=== PATIENT | female | born 1995 ===

== ENCOUNTER 2017-01-05 19:49 | Emergency (ER) | payer SELFPAY ==
[2017-01-05] MEDS ORDERED: Sodium Chloride 0.9% 1,000 ML IV STA (19:59)
[2017-01-05 20:03] VITALS: RESP 18; TEMP 98.4; BMI 22.6
[2017-01-05 20:20] LABS: ADD MANUAL DIFF? NO
--- NOTE | 2017-01-05 20:25 | ED PDOC ---
Arrival/HPI - General Chief Complaint: Abdominal Pain Time Seen by Provider: 01/05/17 19:51 Historian: Patient - History of Present Illness Narrative History of Present Illness (Text): 01/05/17 20:21 21-year-old female presents today with a one-day history of lower abdominal pain . Patient complaining of nausea and no vomiting. States last bowel movement was 2 days ago. Denies fevers or chills. Complaining of low back pain. Denies dysuria or urinary frequency or urgency. Denies vaginal bleeding or vaginal discharge. Patient states her last menstrual period was on December 24. No medications have been taken for pain at home. Patient states she has pain along the right side of the abdomen radiating into the back and leg. Past Medical History - Provider Review Nursing Documentation Reviewed: Yes - Travel History Have you recently traveled outside [place] w/in the past 3 mons?: No - Infectious Disease Hx of Infectious Diseases: None - Tetanus Immunization Tetanus Immunization: Unknown - Past Medical History Past Medical History: No Previous - Cardiac Hx Cardiac Disorders: No - Pulmonary Hx Respiratory Disorders: No - Neurological Hx Neurological Disorder: No - HEENT Hx HEENT Disorder: Yes (b/l lasik eye sx) - Renal Hx Renal Disorder: No - Endocrine/Metabolic Hx Endocrine Disorders: No - Hematological/Oncological Hx Blood Disorders: No - Integumentary Hx Dermatological Disorder: No - Musculoskeletal/Rheumatological Hx Falls: No - Gastrointestinal Hx Gastrointestinal Disorders: Yes (gastritis) Hx Constipation: Yes - Genitourinary/Gynecological Hx Genitourinary Disorders: No - Psychiatric Hx Psychophysiologic Disorder: No Hx Substance Use: No - Past Surgical History Past Surgical History: No Previous - Anesthesia Hx Anesthesia: Yes Hx Anesthesia Reactions: No Hx Malignant Hyperthermia: No - Suicidal Assessment Feels Threatened In Home Enviroment: No Family/Social History - Physician Review Nursing Documentation Reviewed: Yes Family/Social History: Unknown Family HX Smoking Status: Never Smoked Hx Alcohol Use: No Hx Substance Use: No Hx Substance Use Treatment: No Allergies/Home Meds Allergies/Adverse Reactions: Allergies No Known Allergies Allergy (Verified 07/18/16 18:02) Review of Systems - Review of Systems Constitutional: absent: Fatigue, Fevers Respiratory: absent: SOB, Cough Cardiovascular: absent: Chest Pain, Palpitations Gastrointestinal: Abdominal Pain, Constipation (2 days), Nausea. absent: Diarrhea, Vomiting Genitourinary Female: absent: Dysuria, Frequency, Hematuria Musculoskeletal: Back Pain. absent: Neck Pain Skin: absent: Rash, Pruritis Neurological: absent: Headache, Dizziness Psychiatric: absent: Anxiety, Depression Physical Exam Vital Signs Reviewed: Yes Vital Signs Temp Pulse Resp BP Pulse Ox 01/05/17 22:09 76 18 111/73 100 01/05/17 19:56 98.4 F 79 18 113/76 100 Temperature: Afebrile Blood Pressure: Normal Pulse: Regular Respiratory Rate: Normal Appearance: Positive for: Well-Appearing, Non-Toxic, Comfortable Pain Distress: None Mental Status: Positive for: Alert and Oriented X 3 - Systems Exam Head: Present: Atraumatic Mouth: Present: Moist Mucous Membranes Neck: Present: Normal Range of Motion Respiratory/Chest: Present: Clear to Auscultation, Good Air Exchange. No: Respiratory Distress, Accessory Muscle Use Cardiovascular: Present: Regular Rate and Rhythm, Normal S1, S2. No: Murmurs Abdomen: Present: Tenderness (RLQ, periumbilica and RUQ tenderness), Normal Bowel Sounds. No: Distention, Peritoneal Signs, Rebound, Guarding Back: Present: Normal Inspection, Paraspinal Tenderness (+ minimal right lower tenderness). No: CVA Tenderness, Midline Tenderness Upper Extremity: Present: Normal ROM Lower Extremity: Present: Normal ROM Neurological: Present: GCS=15 Skin: Present: Warm, Dry, Normal Color. No: Rashes Psychiatric: Present: Alert, Oriented x 3 Medical Decision Making ED Course and Treatment: 01/05/17 20:27 Patient is nontoxic well appearing with stable vital signs presenting with rlq abdominal pain CBC wnl CMP wnl Lipase wnl Urinalysis wnl CAT scan: FINDINGS: Lower thorax: No acute findings. ABDOMEN: Liver: Unremarkable. No mass. Gallbladder and bile ducts: No calcified stones. No ductal dilation. Pancreas: No ductal dilation. No mass. Spleen: No splenomegaly. Adrenals: No mass. Kidneys and ureters: No mass. No hydronephrosis. Stomach and bowel: No definite mural thickening. No obstruction. Appendix: Normal caliber. No definite inflammation. PELVIS: Bladder: Unremarkable. Reproductive: 1.5 x 1.6 x 1.6 cm peripherally enhancing hypodensity with crenulated margins within LEFT ovary. ABDOMEN and PELVIS: Intraperitoneal space: No significant fluid collection. No free air. Bones/joints: No acute fracture. Soft tissues: Unremarkable. Vasculature: Retroaortic LEFT renal vein. No abdominal aortic aneurysm. Lymph nodes: No pathologically enlarged lymph nodes. IMPRESSION: 1. Involuting or ruptured LEFT ovarian follicle/cyst. 2. Incidental/non-acute findings are described above. Ultrasound: FINDINGS: Uterus/cervix: Uterus measures 7.9 x 3.9 x 4.8 cm in size. Retroverted, bicornuate uterus. No myometrial mass. Endometrium: Up to 1.4 cm in thickness. Right ovary: 2.3 x 1.1 x 3.0 cm in size. No mass. Small follicles. Normal flow. Left ovary: 3.3 x 3.3 x 1.8 cm in size. 1.6 x 1.2 x 1.7 cm thick walled hypoechoic lesion with crenulated margins. Small follicles. Normal flow. Free fluid: No significant free fluid. Bladder: Unremarkable as visualized. IMPRESSION: 1. Involuting or ruptured LEFT ovarian follicle/cyst. 2. Incidental/non-acute findings are described above. EXAM: US Pelvis, Transvaginal CLINICAL HISTORY: 21 years old, female; Pain; Pelvic pain; Additional info: Rlq pain TECHNIQUE: Real-time transvaginal pelvic ultrasound (complete) with image documentation. Transvaginal imaging was used for better evaluation of the endometrium and adnexa. COMPARISON: CT - ABD PELVIS IV CONTRAST ONLY 01/05/2017 9:17:43 PM FINDINGS: Uterus/cervix: Uterus measures 7.9 x 3.9 x 4.8 cm in size. Retroverted, bicornuate uterus. No myometrial mass. Endometrium: Up to 1.4 cm in thickness. Right ovary: 2.3 x 1.1 x 3.0 cm in size. No mass. Small follicles. Normal flow. Left ovary: 3.3 x 3.3 x 1.8 cm in size. 1.6 x 1.2 x 1.7 cm thick walled hypoechoic lesion with crenulated margins. Small follicles. Normal flow. Free fluid: No significant free fluid. Bladder: Empty bladder which cannot be evaluated with this probe. IMPRESSION: 1. Involuting or ruptured LEFT ovarian follicle/cyst. 2. Incidental/non-acute findings are described above. Patient reassessment: pt feeling better after medications; vitals stable. Discussed all results with patient in depth, advised follow-up with a primary care physician within the next 2 days. Advised follow-up with GI doctor within the next 2 days. Advised follow-up with her acute coordinator within the next 2 days. Advised immediate return if symptoms worsen or persist or if new concerning symptoms develop. Patient verbalizes understanding of discharge instructions and need for immediate followup. all aspects of this case were discussed the attending of record. Impression: Abdominal pain, ovarian cyst Motrin every 6 hours as needed for pain Colace twice daily. Follow up with her acute coordinator within the next 2 days Follow-up with the GI doctor within the next 2 days Follow up with primary care physician within the next 2 days Return immediately if symptoms worsen persist or if new symptoms develop: High fevers, increasing pain, vomiting, diarrhea or any other concerning symptoms develop - Lab Interpretations Lab Results: 01/05/17 20:07 01/05/17 20:07 Lab Results 01/05/17 20:07: WBC 8.7, RBC 4.24, Hgb 12.4, Hct 37.2, MCV 87.7, MCH 29.2, MCHC 33.3, RDW 13.2, Plt Count 336, MPV 11.4 H, Gran % 52.6, Lymph % (Auto) 34.2, [place] % (Auto) 12.4 H, Eos % (Auto) 0.6 L, Baso % (Auto) 0.2, Gran # 4.59, Lymph # 3.0, [place] # 1.1 H, Eos # 0.1, Baso # 0.02, Sodium 136, Potassium 3.8, Chloride 102, Carbon Dioxide 25, Anion Gap 13, BUN 4 L, Creatinine 0.6, Est GFR ( Amer) > 60, Est GFR (Non-Af Amer) > 60, Random Glucose 91, Calcium 9.7 , Total Bilirubin 0.4, AST 24, ALT 17, Alkaline Phosphatase 69, Total Protein 8.6 H, Albumin 4.5, Globulin 4.1, Albumin/Globulin Ratio 1.1, Lipase 66, Urine Color Yellow, Urine Appearance Clear, Urine pH 7.5, Ur Specific [place] 1.015, Urine Protein Trace H, Urine Glucose (UA) Negative, Urine Ketones Negative, Urine Blood Negative, Urine Nitrate Negative, Urine Bilirubin Negative, Urine Urobilinogen 0.2, Ur Leukocyte Esterase Negative, Urine RBC 0 - 2, Urine WBC 0 - 2, Ur Epithelial Cells 4 - 5, Urine Bacteria Few, Urine HCG, Qual Negative - RAD Interpretation Radiology Orders: 01/05/17 20:48 ABD & PELVIS IV CONTRAST ONLY [CT] Stat 01/05/17 21:56 TRANSVAGINAL [US] Stat - Medication Orders Current Medication Orders: Discontinued Medications Sodium Chloride (Sodium Chloride 0.9%) 1,000 mls @ 999 mls/hr IV .Q1H1M STA Stop: 01/05/17 20:59 Last Admin: 01/05/17 20:19 Dose: 999 MLS/HR eMAR Start Stop Document 01/05/17 20:19 SB (Rec: 01/05/17 20:19 SB [id number]) Intravenous Solution Start Date 01/05/17 Start Time 20:19 End Date 01/05/17 Iohexol (Omnipaque 350 100 Ml) Confirm Administered Dose 350 mg .ROUTE .STK-MED ONE Stop: 01/05/17 20:56 Ketorolac Tromethamine (Toradol) 30 mg IVP STAT STA Stop: 01/05/17 20:49 Last Admin: 01/05/17 22:08 Dose: 30 MG IVP Administration Document 01/05/17 22:08 SB (Rec: 01/05/17 22:08 SB [id number]) Charges for Administration # of IVP Administrations 1 Disposition/Present on Arrival - Present on Arrival Any Indicators Present on Arrival: No History of DVT/PE: No History of Uncontrolled Diabetes: No Urinary Catheter: No History of Decub. Ulcer: No History Surgical Site Infection Following: None - Disposition Have Diagnosis and Disposition been Completed?: Yes Diagnosis: Abdominal pain, Ovarian cyst Disposition: HOME/ ROUTINE Disposition Time: 23:01 Patient Plan: Discharge Condition: FAIR Discharge Instructions (ExitCare): Acute Abdominal Pain (ED), Ovarian Cyst (ED) Additional Instructions: Motrin every 6 hours as needed for pain Colace twice daily. Follow up with her acute coordinator within the next 2 days Follow-up with the GI doctor within the next 2 days Follow up with primary care physician within the next 2 days Return immediately if symptoms worsen persist or if new symptoms develop: High fevers, increasing pain, vomiting, diarrhea or any other concerning symptoms develop Prescriptions: Docusate [Colace] 100 mg PO BID #20 cap Ibuprofen [Motrin] 600 mg PO Q6H PRN #20 tab PRN Reason: pain/fever reduction Referrals: Nalini Beckman MD [Staff Provider] - Follow up with primary Moses Perez DO [Staff Provider] - Follow up with primary Guerda Stokes MD [Staff Provider] - Follow up with primary Forms: WORK NOTE
[2017-01-05 20:27] LABS: BASO # 0.02 K/mm3 (0.0-2.0); BASO % 0.2 % (0.0-3.0); EOS # 0.1 (0.0-0.7); EOS % 0.6 % (1.5-5.0); GRAN # 4.59 (1.4-6.5); GRAN % 52.6 % (50.0-68.0); HEMATOCRIT 37.2 % (36.0-48.0); LYMPH % 34.2 % (22.0-35.0); MEAN CELL VOLUME 87.7 fL (80.0-105.0); MEAN CORPUSCULAR HEMOGLOBIN 29.2 pg (25.0-35.0); MEAN CORPUSCULAR HGB CONC 33.3 g/dl (31.0-37.0); MEAN PLATELET VOLUME 11.4 fl (7.0-11.0); MONO # 1.1 (0.1-0.6); MONO % 12.4 % (1.0-6.0); PLATELET COUNT 336 10^3/uL (120.0-450.0); RED CELL DISTRIBUTION WIDTH 13.2 % (11.5-14.5); WHITE BLOOD COUNT 8.7 10^3/ul (4.5-11.0)
[2017-01-05 20:35] LABS: PH,URINE 7.5 (4.7-8.0); URINE BILIRUBIN NEGATIVE (NEGATIVE); URINE BLOOD NEGATIVE (NEGATIVE); URINE GLUCOSE (UA) NEGATIVE (NEGATIVE); URINE KETONE NEGATIVE (NEGATIVE); URINE LEUKOCYTE ESTERASE NEGATIVE Leu/uL (NEGATIVE); URINE PROTEIN TRACE mg/dL (<30 mg/dL); URINE UROBILINOGEN 0.2 E.U./dL (<1 E.U./dL)
[2017-01-05 20:36] LABS: URINE APPEARANCE CLEAR (CLEAR); URINE COLOR YELLOW (YELLOW)
[2017-01-05 20:37] LABS: ALB/GLOB RATIO 1.1 (1.1-1.8); ALKALINE PHOSPHATASE 69 U/L (38-133); ALT/SGPT 17 U/L (7-56); AST/SGOT 24 U/L (15-39); BILIRUBIN,TOTAL 0.4 mg/dL (0.2-1.3); BLOOD UREA NITROGEN 4 mg/dL (7-21); CALCIUM 9.7 mg/dL (8.4-10.5); CARBON DIOXIDE 25 mmol/L (21-33); CHLORIDE 102 mmol/L (98-107); GFR AFRICAN-AMERICAN > 60; GLUCOSE,RANDOM 91 mg/dL (70-110); LIPASE 66 U/L (23-300); POTASSIUM 3.8 mmol/L (3.6-5.0); SODIUM 136 mmol/L (132-148); TOTAL PROTEIN 8.6 g/dL (5.8-8.3)
[2017-01-05 20:50] LABS: URINE BACTERIA FEW (NEG); URINE RBC 0 - 2 /hpf (0-2); URINE WBC 0 - 2 /hpf (0-6)
[2017-01-05] MEDS ORDERED: Iohexol 350 MG/100 ML VIAL ONE (20:55)
--- NOTE | 2017-01-05 21:49 | CT ---
EXAM: CT Abdomen and Pelvis With Intravenous Contrast CLINICAL HISTORY: 21 years old, female; Pain; Abdominal pain; Localized; Right lower quadrant (rlq); Additional info: Abd pain rlq TECHNIQUE: Axial computed tomography images of the abdomen and pelvis with intravenous contrast. This CT exam was performed using one or more of the following dose reduction techniques: automated exposure control, adjustment of the mA and/or kV according to patient size, and/or use of iterative reconstruction technique. Coronal and sagittal reformatted images were created and reviewed. CONTRAST: 95 mL of OMNI 350 administered intravenously. COMPARISON: CT - ABD PELVIS PO IV CONTRAST 04/27/2016 10:20:16 PM FINDINGS: Lower thorax: No acute findings. ABDOMEN: Liver: Unremarkable. No mass. Gallbladder and bile ducts: No calcified stones. No ductal dilation. Pancreas: No ductal dilation. No mass. Spleen: No splenomegaly. Adrenals: No mass. Kidneys and ureters: No mass. No hydronephrosis. Stomach and bowel: No definite mural thickening. No obstruction. Appendix: Normal caliber. No definite inflammation. PELVIS: Bladder: Unremarkable. Reproductive: 1.5 x 1.6 x 1.6 cm peripherally enhancing hypodensity with crenulated margins within LEFT ovary. ABDOMEN and PELVIS: Intraperitoneal space: No significant fluid collection. No free air. Bones/joints: No acute fracture. Soft tissues: Unremarkable. Vasculature: Retroaortic LEFT renal vein. No abdominal aortic aneurysm. Lymph nodes: No pathologically enlarged lymph nodes. IMPRESSION: 1. Involuting or ruptured LEFT ovarian follicle/cyst. 2. Incidental/non-acute findings are described above.
[2017-01-05 22:10] VITALS: PULSE 76
--- NOTE | 2017-01-05 22:49 | US ---
EXAM: US Pelvis Complete, Transabdominal CLINICAL HISTORY: 21 years old, female; Pain; Pelvic pain; Additional info: Rlq pain TECHNIQUE: Real-time transabdominal pelvic ultrasound (complete) with image documentation. COMPARISON: CT - ABD PELVIS IV CONTRAST ONLY 01/05/2017 9:17:43 PM FINDINGS: Uterus/cervix: Uterus measures 7.9 x 3.9 x 4.8 cm in size. Retroverted, bicornuate uterus. No myometrial mass. Endometrium: Up to 1.4 cm in thickness. Right ovary: 2.3 x 1.1 x 3.0 cm in size. No mass. Small follicles. Normal flow. Left ovary: 3.3 x 3.3 x 1.8 cm in size. 1.6 x 1.2 x 1.7 cm thick walled hypoechoic lesion with crenulated margins. Small follicles. Normal flow. Free fluid: No significant free fluid. Bladder: Unremarkable as visualized. IMPRESSION: 1. Involuting or ruptured LEFT ovarian follicle/cyst. 2. Incidental/non-acute findings are described above. EXAM: US Pelvis, Transvaginal CLINICAL HISTORY: 21 years old, female; Pain; Pelvic pain; Additional info: Rlq pain TECHNIQUE: Real-time transvaginal pelvic ultrasound (complete) with image documentation. Transvaginal imaging was used for better evaluation of the endometrium and adnexa. COMPARISON: CT - ABD PELVIS IV CONTRAST ONLY 01/05/2017 9:17:43 PM FINDINGS: Uterus/cervix: Uterus measures 7.9 x 3.9 x 4.8 cm in size. Retroverted, bicornuate uterus. No myometrial mass. Endometrium: Up to 1.4 cm in thickness. Right ovary: 2.3 x 1.1 x 3.0 cm in size. No mass. Small follicles. Normal flow. Left ovary: 3.3 x 3.3 x 1.8 cm in size. 1.6 x 1.2 x 1.7 cm thick walled hypoechoic lesion with crenulated margins. Small follicles. Normal flow. Free fluid: No significant free fluid. Bladder: Empty bladder which cannot be evaluated with this probe.
[2017-01-05 23:11] VITALS: BP 103/78; O2SAT 95
== END 2017-01-05 23:14 | disposition home or self-care (01) ==
LOC: ED 19:49
DX: R10.9 Unspecified abdominal pain (principal); N83.202 Unspecified ovarian cyst, left side
CPT/HCPCS: 74177; 76830; 80053; 81001; 83690; 84703; 85025; 96374; 99283; J1885; J7040; Q9967

== ENCOUNTER 2017-03-08 19:51 | Emergency (ER) | payer OTHER ==
[2017-03-08 19:51] VITALS: BMI 22.6
[2017-03-08] MEDS ORDERED: Sodium Chloride 0.9% 1,000 ML IV STA (20:33)
--- NOTE | 2017-03-08 20:40 | ED PDOC ---
Arrival/HPI - General Chief Complaint: Dizziness/Lightheaded Time Seen by Provider: 03/08/17 20:03 Historian: Patient - History of Present Illness Narrative History of Present Illness (Text): 03/08/17 20:31 A 22 year old female, who denies any past medical history, presents to the emergency department complaining of dizziness since this morning. Patient states her symptom is mildly exacerbated with movement. Patient reports 3 episodes of non-bilious non-bloody vomiting. She notes she has experienced previous episodes of similar dizziness before but never had vomiting associated with it. Patient denies any fever, chills, diarrhea, abdominal pain, urinary symptoms, chest pain, shortness of breath, headache, visual changes, ear pain or any other complaints. PMD: None Time/Duration: Other (This morning) Symptom Course: Unchanged Quality: Other Context: Home Past Medical History - Provider Review Nursing Documentation Reviewed: Yes - Infectious Disease Hx of Infectious Diseases: None - Tetanus Immunization Tetanus Immunization: Unknown - Past Medical History Past Medical History: No Previous - Cardiac Hx Cardiac Disorders: No - Pulmonary Hx Respiratory Disorders: No - Neurological Hx Neurological Disorder: No - HEENT Hx HEENT Disorder: Yes (b/l lasik eye sx) - Renal Hx Renal Disorder: No - Endocrine/Metabolic Hx Endocrine Disorders: No - Hematological/Oncological Hx Blood Disorders: No - Integumentary Hx Dermatological Disorder: No - Musculoskeletal/Rheumatological Hx Falls: No - Gastrointestinal Hx Gastrointestinal Disorders: Yes (gastritis) Hx Constipation: Yes - Genitourinary/Gynecological Hx Genitourinary Disorders: No - Psychiatric Hx Psychophysiologic Disorder: No Hx Substance Use: No - Past Surgical History Past Surgical History: No Previous - Anesthesia Hx Anesthesia: Yes - Suicidal Assessment Feels Threatened In Home Enviroment: No Family/Social History - Physician Review Nursing Documentation Reviewed: Yes Family/Social History: No Known Family HX Smoking Status: Never Smoked Hx Alcohol Use: No Hx Substance Use: No Hx Substance Use Treatment: No Allergies/Home Meds Allergies/Adverse Reactions: Allergies No Known Allergies Allergy (Verified 07/18/16 18:02) Review of Systems - Physician Review All systems were reviewed & negative as marked: Yes - Review of Systems Constitutional: absent: Fevers, Night Sweats Eyes: absent: Vision Changes ENT: absent: TMJ Pain Respiratory: absent: SOB Cardiovascular: Palpitations. absent: Chest Pain Gastrointestinal: Vomiting. absent: Abdominal Pain, Diarrhea Genitourinary Female: absent: Dysuria, Frequency, Hematuria, Urine Output Changes Neurological: Dizziness. absent: Headache, Focal Weakness Physical Exam Vital Signs Reviewed: Yes Vital Signs Temp Pulse Resp BP Pulse Ox 03/08/17 22:14 98.7 F 76 18 109/52 L 100 03/08/17 19:58 99.0 F 82 16 115/80 99 Temperature: Afebrile Blood Pressure: Normal Pulse: Regular Respiratory Rate: Normal Appearance: Positive for: Well-Appearing, Non-Toxic, Comfortable Pain Distress: None Mental Status: Positive for: Alert and Oriented X 3 Finger Stick Blood Glucose: 120 - Systems Exam Head: Present: Atraumatic, Normocephalic Pupils: Present: PERRL Extroacular Muscles: Present: EOMI Conjunctiva: Present: Normal Ears: Present: Normal, NORMAL TM, Normal Canal. No: Erythema Mouth: Present: Moist Mucous Membranes Pharnyx: Present: Normal. No: ERYTHEMA, EXUDATE Neck: Present: Normal Range of Motion Respiratory/Chest: Present: Clear to Auscultation, Good Air Exchange. No: Respiratory Distress, Accessory Muscle Use Cardiovascular: Present: Regular Rate and Rhythm, Normal S1, S2. No: Murmurs Abdomen: Present: Normal Bowel Sounds. No: Tenderness, Distention, Peritoneal Signs Back: Present: Normal Inspection Upper Extremity: Present: Normal Inspection. No: Cyanosis, Edema Lower Extremity: Present: Normal Inspection. No: Edema Neurological: Present: GCS=15, CN II-XII Intact, Speech Normal, Motor Func Grossly Intact, Normal Cerebellar Funct Skin: Present: Warm, Dry, Normal Color. No: Rashes Psychiatric: Present: Alert, Oriented x 3, Normal Insight, Normal Concentration Medical Decision Making ED Course and Treatment: 03/08/17 20:31 Impression: A 22 year old female with dizziness. Patient notes non-bilious non bloody vomiting. Physical exam unremarkable. Differential Diagnosis included but are not limited to: vertigo vs less likely central vertigo. Plan: -- Head CT -- EKG -- Labs -- Urinalysis -- Pepcid, Antivert, Zofran and IV fluids -- Reassess and disposition Progress Notes: Report Date: 03/08/2017 21:44 EXAM: CT Head Without Intravenous Contrast Dictated and Authenticated by: Asia Marie MD IMPRESSION: No acute intracranial abnormality 03/08/17 22:30 Patient with noted history of dizziness with spinning sensation and normal exam. Labs, brain CT, and EKG are all normal. Patient also mentioned some palpitations but EKG is normal and had a normal echo done 1.5 years ago. Patient given meds, initially with minimal relief but after reglan felt full resolution of symptoms - will treat for vertigo and d/c to f/u in the medical clinic. - Lab Interpretations Lab Results: 03/08/17 20:40 03/08/17 20:40 Lab Results 03/08/17 20:40: Sodium 137, Potassium 3.6, Chloride 104, Carbon Dioxide 23, Anion Gap 14, BUN 5 L, Creatinine 0.6, Est GFR ( Amer) > 60, Est GFR (Non -Af Amer) > 60, Random Glucose 94, Calcium 9.3, Total Bilirubin 0.4, AST 30, ALT 25, Alkaline Phosphatase 61, Total Protein 8.2, Albumin 4.4, Globulin 3.8, Albumin/Globulin Ratio 1.2, Lipase 69 03/08/17 20:40: Urine Color Yellow, Urine Appearance Clear, Urine pH 7.0, Ur Specific [place] 1.020, Urine Protein Negative, Urine Glucose (UA) Negative, Urine Ketones Negative, Urine Blood Negative, Urine Nitrate Negative, Urine Bilirubin Negative, Urine Urobilinogen 0.2, Ur Leukocyte Esterase Negative 03/08/17 20:40: WBC 10.0, RBC 4.17, Hgb 12.3, Hct 36.9, MCV 88.5, MCH 29.5, MCHC 33.3, RDW 13.0, Plt Count 282, MPV 11.6 H, Gran % 62.0, Lymph % (Auto) 24.1 , [place] % (Auto) 13.0 H, Eos % (Auto) 0.6 L, Baso % (Auto) 0.3, Gran # 6.18, Lymph # 2.4, [place] # 1.3 H, Eos # 0.1, Baso # 0.03 I have reviewed the lab results: Yes - RAD Interpretation Radiology Orders: 03/08/17 20:36 Brain [HEAD W/O CONTRAST] [CT] Stat - EKG Interpretation EKG Interpretation (Text): 03/08/17 22:14 NSR @ 76; normal intervals; normal axis; no ST/T changes (there is pseudonormalization of inferior T wave inversions seen on 07/28/15). Interpreted by ED Physician: Yes Type: 12 lead EKG Comparison: Different from prev. EKG (07/28/15) - Medication Orders Current Medication Orders: Discontinued Medications Famotidine (Pepcid) 20 mg IVP STAT STA Stop: 03/08/17 20:34 Last Admin: 03/08/17 20:56 Dose: 20 mg Sodium Chloride (Sodium Chloride 0.9%) 1,000 mls @ 1,000 mls/hr IV .Q1H STA Stop: 03/08/17 21:32 Last Admin: 03/08/17 20:57 Dose: 1,000 mls/hr Meclizine HCl (Antivert) 12.5 mg PO STAT STA Stop: 03/08/17 20:37 Last Admin: 03/08/17 20:56 Dose: 12.5 mg Metoclopramide HCl (Reglan) 10 mg IVP STAT STA Stop: 03/08/17 21:48 Last Admin: 03/08/17 22:11 Dose: 10 mg Ondansetron HCl (Zofran Inj) 4 mg IVP STAT STA Stop: 03/08/17 20:34 Last Admin: 03/08/17 20:57 Dose: 4 mg - Scribe Statement The provider has reviewed the documentation as recorded by the Ruthie Nova Provider Scribe Attestation: All medical record entries made by the Luisibdonald were at my direction and personally dictated by me. I have reviewed the chart and agree that the record accurately reflects my personal performance of the history, physical exam, medical decision making, and the department course for this patient. I have also personally directed, reviewed, and agree with the discharge instructions and disposition. Disposition/Present on Arrival - Present on Arrival Any Indicators Present on Arrival: No History of DVT/PE: No History of Uncontrolled Diabetes: No Urinary Catheter: No History of Decub. Ulcer: No History Surgical Site Infection Following: None - Disposition Have Diagnosis and Disposition been Completed?: Yes Diagnosis: Vertigo Disposition: HOME/ ROUTINE Disposition Time: 22:25 Patient Plan: Discharge Patient Problems: Current Active Problems Problem Status Onset Vertigo Acute Condition: GOOD Discharge Instructions (ExitCare): Vertigo (ED), Benign Paroxysmal Positional Vertigo (ED) Additional Instructions: Drink plenty of fluids. Take the medications as prescribed. Follow up with the medical clinic. Return to the emergency department if any new concerning symptoms. Prescriptions: Meclizine [Antivert] 1 tab PO TID PRN #15 tab PRN Reason: Dizziness Ondansetron ODT [Zofran ODT] 1 tab PO Q8H PRN #10 odt PRN Reason: Nausea/Vomiting Referrals: [facility] at [facility] [place] [Outside] - Follow up with primary
[2017-03-08 20:49] LABS: ADD MANUAL DIFF? NO
[2017-03-08 20:53] LABS: BASO # 0.03 K/mm3 (0.0-2.0); BASO % 0.3 % (0.0-3.0); EOS # 0.1 (0.0-0.7); EOS % 0.6 % (1.5-5.0); GRAN # 6.18 (1.4-6.5); HEMATOCRIT 36.9 % (36.0-48.0); LYMPH # 2.4 (1.2-3.4); LYMPH % 24.1 % (22.0-35.0); MEAN CELL VOLUME 88.5 fL (80.0-105.0); MEAN CORPUSCULAR HEMOGLOBIN 29.5 pg (25.0-35.0); MEAN CORPUSCULAR HGB CONC 33.3 g/dl (31.0-37.0); MEAN PLATELET VOLUME 11.6 fl (7.0-11.0); MONO # 1.3 (0.1-0.6); PLATELET COUNT 282 10^3/uL (120.0-450.0)
[2017-03-08 20:54] LABS: URINE BILIRUBIN NEGATIVE (NEGATIVE); URINE BLOOD NEGATIVE (NEGATIVE); URINE GLUCOSE (UA) NEGATIVE (NEGATIVE); URINE KETONE NEGATIVE (NEGATIVE); URINE LEUKOCYTE ESTERASE NEGATIVE Leu/uL (NEGATIVE); URINE PROTEIN NEGATIVE mg/dL (<30 mg/dL); URINE UROBILINOGEN 0.2 E.U./dL (<1 E.U./dL)
[2017-03-08 20:55] LABS: URINE APPEARANCE CLEAR (CLEAR); URINE COLOR YELLOW (YELLOW)
[2017-03-08 21:04] LABS: ALB/GLOB RATIO 1.2 (1.1-1.8); ALKALINE PHOSPHATASE 61 U/L (38-133); ALT/SGPT 25 U/L (7-56); AST/SGOT 30 U/L (15-39); BILIRUBIN,TOTAL 0.4 mg/dL (0.2-1.3); BLOOD UREA NITROGEN 5 mg/dL (7-21); CALCIUM 9.3 mg/dL (8.4-10.5); CARBON DIOXIDE 23 mmol/L (21-33); CHLORIDE 104 mmol/L (98-107); GFR AFRICAN-AMERICAN > 60; GLUCOSE,RANDOM 94 mg/dL (70-110); LIPASE 69 U/L (23-300); POTASSIUM 3.6 mmol/L (3.6-5.0); SODIUM 137 mmol/L (132-148); TOTAL PROTEIN 8.2 g/dL (5.8-8.3)
--- NOTE | 2017-03-08 21:44 | CT ---
EXAM: CT Head Without Intravenous Contrast CLINICAL HISTORY: 22 years old, female; Signs and symptoms; Dizziness; Additional info: Dizzy TECHNIQUE: Axial computed tomography images of the head/brain without intravenous contrast. This CT exam was performed using one or more of the following dose reduction techniques: automated exposure control, adjustment of the mA and/or kV according to patient size, and/or use of iterative reconstruction technique. EXAM DATE/TIME: 03/08/2017 8:36 PM COMPARISON: CT - HEAD W/O CONTRAST 07/28/2015 12:37:50 PM FINDINGS: Brain: Ventricles are normal in size and configuration. There is no midline shift. There are no intra-axial or extra-axial mass lesions or areas of hemorrhage. There are no abnormal fluid collections. Crowell-white differentiation is maintained. Ventricles: See above. Bones: Cranial vault is intact. Soft tissues: unremarkable Sinuses: There is no acute sinusitis. Ears and mastoids: Middle ears and mastoids are unremarkable. There is streak artifact from earrings Orbits: Orbital contents are unremarkable. IMPRESSION: No acute intracranial abnormality
[2017-03-08 22:15] VITALS: TEMP 98.7; O2SAT 100
[2017-03-08 22:33] VITALS: BP 124/78; PULSE 91; RESP 16
--- NOTE | 2017-03-09 16:22 | CARD ---
APPROVED REPORT EKG Measurement Heart [id number] <Conclusion> Normal sinus rhythm Normal ECG
== END 2017-03-08 22:32 | disposition home or self-care (01) ==
LOC: ED 19:51
DX: R42 Dizziness and giddiness (principal)
CPT/HCPCS: 70450; 80053; 81003; 83690; 85025; 93005; 96374; 96375; 99285; J2405; J2765; J7040

== ENCOUNTER 2017-05-30 16:32 | Emergency (ER) | payer OTHER ==
[2017-05-30 16:33] VITALS: BMI 22.6
[2017-05-30 16:41] VITALS: RESP 18; TEMP 98.7
--- NOTE | 2017-05-30 16:44 | ED PDOC ---
Arrival/HPI - General Historian: Patient - History of Present Illness Time/Duration: < week Symptom Onset: Gradual Symptom Course: Worsening Severity Level: Moderate - General Chief Complaint: Back Pain Time Seen by Provider: 05/30/17 16:42 - History of Present Illness Narrative History of Present Illness (Text): 05/30/17 16:55 22yo F with no significant PMHx here for evaluation of left flank pain. Patient reports left flank pain for the past 3 days. States that she has associated urinary urgency, urinary frequency and dysuria over the same time period. She denies any fevers, does report chills. No N/V/D. Does report chronic constipation. Denies any CP/SOB. No Headaches. She is sexually active with single partner. Denies possibility of . Denies any vaginal discharge. 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 Denies Tobacco, Rare ETOH, Denies any illicit drugs NKDA (UmbertoArnold) Past Medical History - Provider Review Nursing Documentation Reviewed: Yes - Infectious Disease Hx of Infectious Diseases: None - Tetanus Immunization Tetanus Immunization: Unknown - Past Medical History Past Medical History: No Previous - Cardiac Hx Cardiac Disorders: No - Pulmonary Hx Respiratory Disorders: No - Neurological Hx Neurological Disorder: No - HEENT Hx HEENT Disorder: Yes (b/l lasik eye sx) - Renal Hx Renal Disorder: No - Endocrine/Metabolic Hx Endocrine Disorders: No - Hematological/Oncological Hx Blood Disorders: No - Integumentary Hx Dermatological Disorder: No - Musculoskeletal/Rheumatological Hx Falls: No - Gastrointestinal Hx Gastrointestinal Disorders: Yes (gastritis) Hx Constipation: Yes - Genitourinary/Gynecological Hx Genitourinary Disorders: No - Psychiatric Hx Psychophysiologic Disorder: No Hx Substance Use: No - Past Surgical History Past Surgical History: No Previous - Anesthesia Hx Anesthesia: Yes Hx Anesthesia Reactions: No - Suicidal Assessment Feels Threatened In Home Enviroment: No Family/Social History - Physician Review Nursing Documentation Reviewed: Yes Family/Social History: Unknown Family HX Smoking Status: Never Smoked Hx Alcohol Use: No Hx Substance Use: No Hx Substance Use Treatment: No Allergies/Home Meds Allergies/Adverse Reactions: Allergies No Known Allergies Allergy (Verified 05/30/17 16:38) Review of Systems - Physician Review All systems were reviewed & negative as marked: Yes - Review of Systems Constitutional: Normal. absent: Fevers Eyes: Normal ENT: Normal Respiratory: Normal Cardiovascular: Normal Gastrointestinal: Abdominal Pain, Constipation. absent: Diarrhea, Nausea, Vomiting Genitourinary Female: Dysuria, Frequency. absent: Hematuria, Vaginal Discharge Physical Exam Vital Signs Reviewed: Yes Temperature: Afebrile Blood Pressure: Normal Pulse: Regular Respiratory Rate: Normal Appearance: Positive for: Well-Appearing, Non-Toxic, Comfortable Pain Distress: Moderate Mental Status: Positive for: Alert and Oriented X 3 - Systems Exam Head: Present: Atraumatic, Normocephalic Extroacular Muscles: Present: EOMI Mouth: Present: Moist Mucous Membranes Respiratory/Chest: Present: Clear to Auscultation, Good Air Exchange. No: Respiratory Distress, Accessory Muscle Use, Wheezes, Decreased Breath Sounds, Rales, Rhonchi Cardiovascular: Present: Regular Rate and Rhythm, Normal S1, S2. No: Murmurs Abdomen: Present: Tenderness (LLQ abd pain. ). No: Distention, Peritoneal Signs , Rebound, Guarding Back: Present: CVA Tenderness (left sided CVA tenderness) Upper Extremity: Present: Normal Inspection. No: Edema Lower Extremity: Present: Normal Inspection. No: Edema, CALF TENDERNESS Neurological: Present: GCS=15 Skin: Present: Warm, Dry, Normal Color Psychiatric: Present: Alert, Oriented x 3 Medical Decision Making ED Course and Treatment: 05/30/17 17:39 22yo F with Dysuria, Left flank pain - UA - Positive for UTI. With evidence of Urinary blood - CT Abd/Pelvis ordered - Toradol - CBC/CMP - Reassess and dispo 05/30/17 20:[address] Abd/Pelvis from vrad Labs within normal limits 05/30/17 20:37 CT Abd - No ureteral stones, no kidney stones. No hydronephrosis. Mild constipation. Will prescribe patient Macrobid. First dose here in ED. - Discussed findings with patient. Patient to follow up with [facility] clinic. Patient understands and agrees with plan. (Arnold Shipman) A 22 year old female with left flank pain and dysuria. In agreement with resident note, which includes further HPI details. Patient was seen and evaluated with resident, came up with plan and treatment together. Report Date : 05/30/2017 20:39:00 EXAM: CT Abdomen and Pelvis Without Intravenous Contrast Dictated By: Asia Marie MD IMPRESSION: No renal or ureteral stones or hydronephrosis; no acute solid visceral abnormality; possible constipation (Jeannie Keating) - Lab Interpretations Lab Results: 05/30/17 17:20 05/30/17 17:20 Lab Results 05/30/17 17:20: Sodium 139, Potassium 4.1, Chloride 104, Carbon Dioxide 25, Anion Gap 14, BUN 7, Creatinine 0.6, Est GFR ( Amer) > 60, Est GFR (Non- Af Amer) > 60, Random Glucose 89, Calcium 9.6, Total Bilirubin 0.5, AST 23, ALT 25, Alkaline Phosphatase 82, Total Protein 7.9, Albumin 4.3, Globulin 3.5, Albumin/Globulin Ratio 1.2 05/30/17 17:20: WBC 10.0, RBC 4.18, Hgb 12.1, Hct 37.2, MCV 89.0, MCH 28.9, MCHC 32.5, RDW 13.1, Plt Count 313, MPV 11.4 H, Gran % 66.8, Lymph % (Auto) 20.0 L, [place] % (Auto) 12.5 H, Eos % (Auto) 0.5 L, Baso % (Auto) 0.2, Gran # 6.70 H, Lymph # 2.0, [place] # 1.3 H, Eos # 0.1, Baso # 0.02 05/30/17 17:00: Urine Color Yellow, Urine Appearance Sl cloudy, Urine pH 7.0, Ur Specific [place] 1.020, Urine Protein 30 H, Urine Glucose (UA) Negative, Urine Ketones Negative, Urine Blood Large H, Urine Nitrate Negative, Urine Bilirubin Negative, Urine Urobilinogen 1.0 H, Ur Leukocyte Esterase Large H, Urine RBC 25 - 30, Urine WBC Tntc, Ur Epithelial Cells 6 - 8, Urine Bacteria Many, Urine HCG, Qual Negative - RAD Interpretation Radiology Orders: 05/30/17 17:27 ABDOMEN & PELVIS [ABD & PELVIS W/O PO OR IV CONT] [CT] Stat - Medication Orders Current Medication Orders: Nitrofurantoin Macrocrystals (Macrobid) 100 mg PO STAT STA Stop: 08/22/17 20:41 Discontinued Medications Ketorolac Tromethamine (Toradol) 30 mg IVP STAT STA Stop: 05/30/17 17:09 Last Admin: 05/30/17 17:21 Dose: 30 mg - PA / CUSTODIAL AIDE / Resident Statement / has reviewed & agrees with the documentation as recorded. / has examined the patient and agrees with the treatment plan. Disposition/Present on Arrival - Present on Arrival Any Indicators Present on Arrival: No History of DVT/PE: No History of Uncontrolled Diabetes: No Urinary Catheter: No History of Decub. Ulcer: No History Surgical Site Infection Following: None - Disposition Have Diagnosis and Disposition been Completed?: Yes Disposition Time: 20:43 Patient Plan: Discharge - Disposition Diagnosis: Urinary tract infection Disposition: HOME/ ROUTINE Patient Problems: Current Active Problems Problem Status Onset Urinary tract infection Acute Condition: GOOD Discharge Instructions (ExitCare): Urinary Tract Infection in Women (ED) Additional Instructions: 1. Follow up with your Primary Care Physician within 1 week. Follow up with our clinic if unable to find a PCP. Call for appointment 2. Take antibiotics as prescribed to completion 3. Use OTC Ibuprofen as directed as needed for pain 4. Return to the ER with any concerning symptoms Prescriptions: Nitrofurantoin Macrocrystal [Nitrofurantoin] 100 mg PO BID #10 capsule Referrals: Matti Neri, [Primary Care Provider] - Follow up with primary [facility] at [facility] – [place] [Outside] - Follow up with primary Forms: [employer] (Chinese)
[2017-05-30 17:13] LABS: URINE BILIRUBIN NEGATIVE (NEGATIVE); URINE BLOOD LARGE (NEGATIVE); URINE GLUCOSE (UA) NEGATIVE (NEGATIVE); URINE KETONE NEGATIVE (NEGATIVE); URINE LEUKOCYTE ESTERASE LARGE Leu/uL (NEGATIVE); URINE PROTEIN 30 mg/dL (<30 mg/dL)
[2017-05-30 17:15] LABS: URINE APPEARANCE SL CLOUDY (CLEAR); URINE COLOR YELLOW (YELLOW)
[2017-05-30 17:30] LABS: URINE RBC 25 - 30 /hpf (0-2); URINE WBC TNTC /hpf (0-6)
[2017-05-30 17:31] LABS: URINE BACTERIA MANY (NEG)
[2017-05-30 17:37] LABS: ALB/GLOB RATIO 1.2 (1.1-1.8); ALKALINE PHOSPHATASE 82 U/L (38-133); ALT/SGPT 25 U/L (7-56); AST/SGOT 23 U/L (15-39); BILIRUBIN,TOTAL 0.5 mg/dL (0.2-1.3); BLOOD UREA NITROGEN 7 mg/dL (7-21); CALCIUM 9.6 mg/dL (8.4-10.5); CARBON DIOXIDE 25 mmol/L (21-33); CHLORIDE 104 mmol/L (98-107); GFR AFRICAN-AMERICAN > 60; GLUCOSE,RANDOM 89 mg/dL (70-110); POTASSIUM 4.1 mmol/L (3.6-5.0); SODIUM 139 mmol/L (132-148); TOTAL PROTEIN 7.9 g/dL (5.8-8.3)
[2017-05-30 17:48] LABS: BASO # 0.02 K/mm3 (0.0-2.0); BASO % 0.2 % (0.0-3.0); EOS # 0.1 (0.0-0.7); EOS % 0.5 % (1.5-5.0); GRAN # 6.7 (1.4-6.5); GRAN % 66.8 % (50.0-68.0); HEMATOCRIT 37.2 % (36.0-48.0); MEAN CORPUSCULAR HEMOGLOBIN 28.9 pg (25.0-35.0); MEAN CORPUSCULAR HGB CONC 32.5 g/dl (31.0-37.0); MEAN PLATELET VOLUME 11.4 fl (7.0-11.0); MONO # 1.3 (0.1-0.6); MONO % 12.5 % (1.0-6.0); RED CELL DISTRIBUTION WIDTH 13.1 % (11.5-14.5)
[2017-05-30 20:39] VITALS: BP 106/66; PULSE 71; O2SAT 100
--- NOTE | 2017-05-30 20:39 | CT ---
EXAM: CT Abdomen and Pelvis Without Intravenous Contrast EXAM DATE/TIME: 05/30/2017 5:27 PM CLINICAL HISTORY: 22 years old, female; Pain; Abdominal pain; Acute; Additional info: Left flank pain TECHNIQUE: Axial computed tomography images of the abdomen and pelvis without intravenous contrast. All CT scans at this facility use one or more dose reduction techniques, viz.: automated exposure control; ma/kV adjustment per patient size (including targeted exams where dose is matched to indication; i.e. head); or iterative reconstruction technique. Coronal and sagittal reformatted images were created and reviewed. COMPARISON: CT - ABD PELVIS IV CONTRAST ONLY 01/05/2017 9:17:43 PM FINDINGS: Lower thorax: Heart size is normal. There is minimal nodular pleural thickening at the lung bases. There is no focal consolidation There is a small hiatal hernia. ABDOMEN: Liver: unremarkable Gallbladder and bile ducts: unremarkable Pancreas: unremarkable Spleen: unremarkable Adrenals: unremarkable Kidneys and ureters: Kidneys and ureters are unremarkable. There are no renal or ureteral stones. Stomach and bowel: Stomach is partially distended. Rotation is normal. Small bowel is mildly distended with fluid and air. There is no obstruction. Terminal ileum is unremarkable. Appendix is unremarkable. There is moderate stool in the colon. Appendix: See stomach and bowel PELVIS: Bladder: Bladder is partially distended. Reproductive: Uterus and adnexal structures are unremarkable. ABDOMEN and PELVIS: Intraperitoneal space: There is trace free fluid.There is no free air. Bones/joints: There are no acute osseous abnormalities Soft tissues: There is a small fat containing umbilical hernia. Vasculature: Vascular structures are unremarkable. Lymph nodes: There is shotty mesenteric adenopathy. IMPRESSION: No renal or ureteral stones or hydronephrosis; no acute solid visceral abnormality; possible constipation
== END 2017-05-30 20:57 | disposition home or self-care (01) ==
LOC: ED 16:32
DX: N39.0 Urinary tract infection, site not specified (principal)
CPT/HCPCS: 74176; 80053; 81001; 84703; 85025; 87086; 96374; 99285; J1885

== ENCOUNTER 2017-09-24 08:35 | Emergency (ER) | payer MEDICAID, OTHER ==
[2017-09-24 08:35] VITALS: BMI 22.6
[2017-09-24 09:20] VITALS: BP 110/58; PULSE 97; RESP 17; TEMP 98; O2SAT 100
--- NOTE | 2017-09-24 09:20 | ED PDOC ---
Arrival/HPI - General Historian: Patient <Isidro Hernández - Last Filed: 09/24/17 10:15> <Matteo Weller - Last Filed: 09/24/17 18:29> - General Chief Complaint: Cough, Cold, Congestion Time Seen by Provider: 09/24/17 09:14 - History of Present Illness Narrative History of Present Illness (Text): 09/24/17 09:15 22 year old female, no significant pmh, nkda, approx. 16 weeks , complaining of cough and throat pain started yesterday. Aching pain, aggravated by swallowing, no night sweat, no dizziness, no abdominal or pelvic pain, no urinary symptoms, no palpitation, no rash, no fever or chills, no recent traveling for the past 4 weeks, no numbness or tingling, no vaginal bleeding or discharge, no neck stiffness or rash, eating and drinking well, no change in energy level, no other medical or psychological complaints. (Isidro Hernández) Past Medical History - Provider Review Nursing Documentation Reviewed: Yes - Infectious Disease Hx of Infectious Diseases: None - Tetanus Immunization Tetanus Immunization: Unknown - Past Medical History Past Medical History: No Previous - Cardiac Hx Cardiac Disorders: No - Pulmonary Hx Respiratory Disorders: No - Neurological Hx Neurological Disorder: No - HEENT Hx HEENT Disorder: Yes (b/l lasik eye sx) - Renal Hx Renal Disorder: No - Endocrine/Metabolic Hx Endocrine Disorders: No - Hematological/Oncological Hx Blood Disorders: No - Integumentary Hx Dermatological Disorder: No - Musculoskeletal/Rheumatological Hx Falls: No - Gastrointestinal Hx Gastrointestinal Disorders: Yes (gastritis) Hx Constipation: Yes - Genitourinary/Gynecological Hx Genitourinary Disorders: No - Psychiatric Hx Psychophysiologic Disorder: No Hx Substance Use: No - Past Surgical History Past Surgical History: No Previous - Anesthesia Hx Anesthesia: Yes Hx Anesthesia Reactions: No - Suicidal Assessment Feels Threatened In Home Enviroment: No <Isidro Hrenández - Last Filed: 09/24/17 10:15> Family/Social History - Physician Review Nursing Documentation Reviewed: Yes Family/Social History: Unknown Family HX Smoking Status: Never Smoked Hx Alcohol Use: No Hx Substance Use: No Hx Substance Use Treatment: No <Isidro Hernández - Last Filed: 09/24/17 10:15> Allergies/Home Meds <Isidro Hernández - Last Filed: 09/24/17 10:15> <Matteo Weller - Last Filed: 09/24/17 18:29> Allergies/Adverse Reactions: Allergies No Known Allergies Allergy (Verified 05/30/17 16:38) Review of Systems - Review of Systems Constitutional: absent: Fatigue, Fevers Eyes: absent: Vision Changes ENT: Sore Throat. absent: Hearing Changes Respiratory: Cough. absent: SOB, Sputum Cardiovascular: absent: Chest Pain Gastrointestinal: absent: Abdominal Pain, Nausea, Vomiting Musculoskeletal: absent: Arthralgias, Back Pain, Myalgias Skin: absent: Rash, Pruritis Neurological: absent: Headache, Dizziness <Isidro Hernández Q - Last Filed: 09/24/17 10:15> Physical Exam - Systems Exam Head: Present: Atraumatic, Normocephalic Pupils: Present: PERRL Extroacular Muscles: Present: EOMI Conjunctiva: Present: Normal Ears: Present: NORMAL TM, Normal Canal. No: Erythema, TM Perf Mouth: Present: Moist Mucous Membranes Pharnyx: No: ERYTHEMA, EXUDATE, TONSILS ENLARGED, Uvular Deviation, Muffled/ Hoarse Voice, Str[place], Soft Palate/Uvular Edema Neck: Present: Normal Range of Motion, Trachea Midline. No: Meningeal Signs, MIDLINE TENDERNESS, Paraspinal Tenderness, Lymphadenopathy Respiratory/Chest: Present: Clear to Auscultation, Good Air Exchange. No: Respiratory Distress, Accessory Muscle Use, Wheezes, Decreased Breath Sounds, Rales, Retracting, Rhonchi, Tachypneic, Tender to Palpation Cardiovascular: Present: Regular Rate and Rhythm, Normal S1, S2, Other (no pedal edema). No: Murmurs Abdomen: Present: Normal Bowel Sounds. No: Tenderness, Distention, Peritoneal Signs Back: Present: Normal Inspection Upper Extremity: Present: Normal Inspection. No: Cyanosis, Edema Lower Extremity: Present: Normal Inspection. No: Edema Neurological: Present: GCS=15, Speech Normal, Motor Func Grossly Intact, Gait Normal, Memory Normal Skin: Present: Warm, Dry, Normal Color. No: Rashes Lymphatic: No: Cervical Adenopathy Psychiatric: Present: Alert, Oriented x 3, Normal Insight, Normal Concentration <Isidro Hernández - Last Filed: 09/24/17 10:15> Vital Signs Temp Pulse Resp BP Pulse Ox 12/17/17 09:17 98.0 F 97 H 17 110/58 L 100 Medical Decision Making - Lab Interpretations I have reviewed the lab results: Yes Interpretation: No clinic. lab abnormalty <Isidro Hernández - Last Filed: 09/24/17 10:15> <JaneeGeeGuillaumedenise - Last Filed: 09/24/17 18:29> ED Course and Treatment: 09/24/17 09:23 -rapid strept -Urinalysis -Tylenol 650mg po -Observe and reassess 09/24/17 10:15 -Rapid strept negative -Urinalysis show no UTI. -Pt. is afebrile, eating and drinking well, physical examination is unremarkable. -Discharge home with tylenol, bed rest, follow up with your own pmd and ENT within 2 days, return to the Emergency room for any new or worsening signs or symptoms. (Isidro Hernández) - Lab Interpretations Lab Results: Lab Results 09/24/17 09:36: Urine Color Yellow, Urine Appearance Clear, Urine pH 8.0, Ur Specific [place] 1.015, Urine Protein Trace H, Urine Glucose (UA) Negative, Urine Ketones Negative, Urine Blood Negative, Urine Nitrate Negative, Urine Bilirubin Negative, Urine Urobilinogen 0.2, Ur Leukocyte Esterase Negative, Urine RBC 0 - 2, Urine WBC 2 - 5, Ur Epithelial Cells 3 - 4, Amorphous Sediment Few 09/24/17 09:00: Grp A Beta Strep Ag Negative - Medication Orders Current Medication Orders: Discontinued Medications Acetaminophen (Tylenol 325mg Tab) 650 mg PO STAT STA Stop: 09/24/17 09:33 Last Admin: 09/24/17 09:36 Dose: 650 mg MAR Pain/Vitals Document 09/24/17 09:36 SE (Rec: 09/24/17 09:36 [id number]) Pain Reassessment Is This A Pain ReAssessment? No Sleep Is patient sleeping during reassessment? No Presence of Pain Presence of Pain Yes Pain Scale Used Pain Scale Used Numeric Location Pain Location Body Credit Review Officer Intensity 5 Scale Used Numeric - PA / RN ADMISSION / Resident Statement / has reviewed & agrees with the documentation as recorded. <Isidro Hernández - Last Filed: 09/24/17 10:15> - PA / RN ADMISSION / Resident Statement / has reviewed & agrees with the documentation as recorded. <Matteo Weller - Last Filed: 09/24/17 18:29> Disposition/Present on Arrival - Present on Arrival Any Indicators Present on Arrival: No History of DVT/PE: No History of Uncontrolled Diabetes: No Urinary Catheter: No History of Decub. Ulcer: No History Surgical Site Infection Following: None - Disposition Have Diagnosis and Disposition been Completed?: Yes Disposition Time: 09:24 Patient Plan: Discharge <Isidro Hernández - Last Filed: 09/24/17 10:15> <Matteo Weller - Last Filed: 09/24/17 18:29> - Disposition Diagnosis: Viral URI Disposition: HOME/ ROUTINE Condition: GOOD Additional Instructions: -Discharge home with tylenol, bed rest, follow up with your own pmd and ENT within 2 days, return to the Emergency room for any new or worsening signs or symptoms. Prescriptions: Acetaminophen [Tylenol 325mg tab] 2 tab PO QID PRN #30 tab PRN Reason: Other Referrals: Saqib Jewell DO [Staff Provider] - Follow up with primary [facility] at [facility] [place] [Outside] - Follow up with primary Forms: WORK NOTE
[2017-09-24 09:46] LABS: URINE BILIRUBIN NEGATIVE (NEGATIVE); URINE BLOOD NEGATIVE (NEGATIVE); URINE GLUCOSE (UA) NEGATIVE (NEGATIVE); URINE KETONE NEGATIVE (NEGATIVE); URINE LEUKOCYTE ESTERASE NEGATIVE Leu/uL (NEGATIVE); URINE PROTEIN TRACE mg/dL (<30 mg/dL); URINE UROBILINOGEN 0.2 E.U./dL (<1 E.U./dL)
[2017-09-24 09:51] LABS: URINE APPEARANCE CLEAR (CLEAR); URINE COLOR YELLOW (YELLOW)
[2017-09-24 10:12] LABS: URINE AMORPHOUS SEDIMENT FEW; URINE RBC 0 - 2 /hpf (0-2)
== END 2017-09-24 10:26 | disposition home or self-care (01) ==
LOC: ED 08:35
DX: J06.9 Acute upper respiratory infection, unspecified (principal)

== ENCOUNTER 2018-09-10 01:32 | Emergency (ER) | payer MEDICAID, OTHER ==
[2018-09-10 02:49] VITALS: RESP 16; O2SAT 98
--- NOTE | 2018-09-10 02:53 | ED PDOC ---
Arrival/HPI - General Time Seen by Provider: 09/10/18 01:49 Historian: Patient - History of Present Illness Narrative History of Present Illness (Text): 09/10/18 02:53 Mary Kyle is a 23 year old female, with no significant past medical history, who presents to the Emergency department complaining of cold-like symptoms for the past few days. Patient states she has been experiencing runny nose with associated dry cough. Patient denies any fever, chills, chest pain, shortness of breath, nausea, vomiting, diarrhea, urinary symptoms, back pain, neck pain, headache, dizziness, or any other complaints. Symptom Onset: Gradual Symptom Course: Unchanged Activities at Onset: Light Context: Home Past Medical History - Provider Review Nursing Documentation Reviewed: Yes - Infectious Disease Hx of Infectious Diseases: None - Tetanus Immunization Tetanus Immunization: Unknown - Past Medical History Past Medical History: No Previous - Cardiac Hx Cardiac Disorders: No - Pulmonary Hx Respiratory Disorders: No - Neurological Hx Neurological Disorder: No - HEENT Hx HEENT Disorder: Yes (b/l lasik eye sx) - Renal Hx Renal Disorder: No - Endocrine/Metabolic Hx Endocrine Disorders: No - Hematological/Oncological Hx Blood Disorders: No - Integumentary Hx Dermatological Disorder: No - Musculoskeletal/Rheumatological Hx Falls: No - Gastrointestinal Hx Gastrointestinal Disorders: Yes (gastritis) Hx Constipation: Yes - Genitourinary/Gynecological Hx Genitourinary Disorders: No - Psychiatric Hx Psychophysiologic Disorder: No Hx Substance Use: No - Past Surgical History Past Surgical History: No Previous - Anesthesia Hx Anesthesia: Yes Hx Anesthesia Reactions: No - Suicidal Assessment Feels Threatened In Home Enviroment: No Family/Social History - Physician Review Nursing Documentation Reviewed: Yes Family/Social History: Unknown Family HX Smoking Status: Never Smoked Hx Alcohol Use: No Hx Substance Use: No Hx Substance Use Treatment: No Allergies/Home Meds Allergies/Adverse Reactions: Allergies No Known Allergies Allergy (Verified 12/01/17 18:56) Home Medications: Home Meds Medication Instructions Recorded Confirmed Multivit/Folic Acid/I 1 tab PO DAILY 12/01/17 12/01/17 [ Plus] Physical Exam Vital Signs Temp Pulse Resp BP Pulse Ox 09/10/18 02:49 98.3 F 86 16 113/65 98 Medical Decision Making ED Course and Treatment: 09/10/18 02:53 Impression: 23 year old female complaining of cold-like symptoms, dry cough, and runny nose. Differential Diagnosis included but are not limited to: bronchitis vs URI Plan: -- Reassess and disposition Progress Notes: - Scribe Statement The provider has reviewed the documentation as recorded by the Ruthie Casarez Provider Scribe Attestation: All medical record entries made by the Scribe were at my direction and personally dictated by me. I have reviewed the chart and agree that the record accurately reflects my personal performance of the history, physical exam, medical decision making, and the department course for this patient. I have also personally directed, reviewed, and agree with the discharge instructions and disposition. Disposition/Present on Arrival - Present on Arrival Any Indicators Present on Arrival: No History of DVT/PE: No History of Uncontrolled Diabetes: No Urinary Catheter: No History Surgical Site Infection Following: None - Disposition Have Diagnosis and Disposition been Completed?: Yes Diagnosis: Bronchitis Disposition: HOME/ ROUTINE Disposition Time: 03:16 Patient Plan: Discharge Condition: GOOD Discharge Instructions (ExitCare): Acute Bronchitis, Adult (DC) Additional Instructions: take meds as prescribed/follow up with your doctor this week Prescriptions: Benzonatate [Tessalon Perles] 100 mg PO TID PRN #21 sgl PRN Reason: Cough Azithromycin [Zithromax] 250 mg PO DAILY #6 tab Forms: WORK NOTE
[2018-09-10 02:56] VITALS: BMI 27.1
[2018-09-10 03:39] VITALS: BP 105/75; PULSE 82; TEMP 98
== END 2018-09-10 03:40 | disposition home or self-care (01) ==
LOC: ED 01:32
DX: J40 Bronchitis, not specified as acute or chronic (principal)

== ENCOUNTER 2018-11-07 15:36 | Emergency (ER) | payer OTHER ==
[2018-11-07 15:51] VITALS: RESP 18; TEMP 98.4; O2SAT 100
[2018-11-07 15:54] VITALS: BMI 23.8
[2018-11-07] MEDS ORDERED: Sodium Chloride 0.9% 1,000 ML IV STA (16:17)
[2018-11-07 16:36] LABS: BASO # 0.02 K/mm3 (0.0-2.0); BASO % 0.2 % (0.0-3.0); EOS % 0.4 % (1.5-5.0); HEMOGLOBIN 13.7 g/dL (12.0-16.0); LYMPH # 2.5 (1.2-3.4); LYMPH % 27.4 % (22.0-35.0); MEAN CELL VOLUME 88.8 fl (80.0-105.0); MEAN CORPUSCULAR HGB CONC 32.7 g/dl (31.0-37.0); MEAN PLATELET VOLUME 11.4 fl (7.0-11.0); MONO # 0.9 (0.1-0.6); MONO % 9.5 % (1.0-6.0); RBC 4.72 10^6/uL (3.5-6.1); RED CELL DISTRIBUTION WIDTH 13.8 % (11.5-14.5); WHITE BLOOD COUNT 9.3 10^3/uL (4.5-11.0)
--- NOTE | 2018-11-07 16:59 | RAD ---
HISTORY: palpitations COMPARISON: Chest x-ray performed 07/28/15 TECHNIQUE: Chest, one view. FINDINGS: LUNGS: No focal consolidation. Please note that chest x-ray has limited sensitivity for the detection of pulmonary masses. PLEURA: No significant pleural effusion identified. No definite pneumothorax . CARDIOVASCULAR: Heart size appears within normal limits. No significant atherosclerotic calcification present. OSSEOUS STRUCTURES: No acute osseous abnormality identified. VISUALIZED UPPER ABDOMEN: Unremarkable. OTHER FINDINGS: None. IMPRESSION: No focal consolidation.
[2018-11-07 17:01] LABS: PH,URINE 7.5 (4.7-8.0); URINE BILIRUBIN NEGATIVE (NEGATIVE); URINE BLOOD NEGATIVE (NEGATIVE); URINE GLUCOSE (UA) NEGATIVE (NEGATIVE); URINE LEUKOCYTE ESTERASE NEGATIVE Leu/uL (NEGATIVE); URINE PROTEIN NEGATIVE mg/dL (<30 mg/dL); URINE UROBILINOGEN 0.2 E.U./dL (<1 E.U./dL)
[2018-11-07 17:02] LABS: URINE APPEARANCE CLEAR (CLEAR); URINE COLOR YELLOW (YELLOW)
[2018-11-07 17:16] VITALS: BP 113/65; PULSE 71
[2018-11-07 17:29] LABS: ALB/GLOB RATIO 1.1 (1.1-1.8); ALBUMIN 4.8 g/dL (3.0-4.8); ALT/SGPT 26 U/L (7-56); AST/SGOT 34 U/L (14-36); BLOOD UREA NITROGEN 11 mg/dL (7-21); CALCIUM 9.9 mg/dL (8.4-10.5); GFR NON-AFRICAN AMERICAN > 60
--- NOTE | 2018-11-07 17:45 | ED PDOC ---
Arrival/HPI - General Chief Complaint: Palpitations Time Seen by Provider: 11/07/18 15:37 Historian: Patient - History of Present Illness Narrative History of Present Illness (Text): 11/07/18 21:40 23F w/ no past medical history presenting [facility] for palpitations she had experienced for the last couple of hours. The patient reports having abdominal plain, nausea and emesis yesterday that was self-limited in nature. She denies any recent ingestion of novelty foods, exposure to noxious substances or prior history of similar episodes. She denies smoking cigarettes, being on OCPs or history of arrhythmias. She denies chest pain, syncopal episodes, shortness of breath, weakness, back pain, dysuria, hematuria, co nstipation/diarrhea at this time. Time/Duration: Prior to Arrival Symptom Onset: Sudden Symptom Course: Intermittent Activities at Onset: Rest Context: Home Past Medical History - Provider Review Nursing Documentation Reviewed: Yes - Travel History Have you recently traveled outside [place] w/in the past 3 mons?: No - Infectious Disease Hx of Infectious Diseases: None - Tetanus Immunization Tetanus Immunization: Unknown - Reproductive Currently : No - Past Medical History Past Medical History: No Previous - Cardiac Hx Cardiac Disorders: No - Pulmonary Hx Respiratory Disorders: No - Neurological Hx Neurological Disorder: No - HEENT Hx HEENT Disorder: Yes (b/l lasik eye sx) - Renal Hx Renal Disorder: No - Endocrine/Metabolic Hx Endocrine Disorders: No - Hematological/Oncological Hx Blood Disorders: No - Integumentary Hx Dermatological Disorder: No - Musculoskeletal/Rheumatological Hx Falls: No - Gastrointestinal Hx Gastrointestinal Disorders: Yes (gastritis) Hx Constipation: Yes - Genitourinary/Gynecological Hx Genitourinary Disorders: No - Psychiatric Hx Psychophysiologic Disorder: No Hx Substance Use: No - Past Surgical History Past Surgical History: No Previous - Surgical History Hx Section: Yes (2018) - Anesthesia Hx Anesthesia: Yes Hx Anesthesia Reactions: No - Suicidal Assessment Feels Threatened In Home Enviroment: No Family/Social History - Physician Review Nursing Documentation Reviewed: Yes Family/Social History: Unknown Family HX Smoking Status: Never Smoked Hx Alcohol Use: No Hx Substance Use: No Hx Substance Use Treatment: No Allergies/Home Meds Allergies/Adverse Reactions: Allergies No Known Allergies Allergy (Verified 11/07/18 15:54) Home Medications: Home Meds Medication Instructions Recorded Confirmed Multivit/Folic Acid/I 1 tab PO DAILY 12/01/17 12/01/17 [ Plus] Review of Systems - Physician Review All systems were reviewed & negative as marked: Yes - Review of Systems Cardiovascular: Palpitations Physical Exam Vital Signs Temp Pulse Resp BP Pulse Ox 11/07/18 17:16 71 18 113/65 100 11/07/18 15:50 98.4 F 76 18 111/62 100 Temperature: Afebrile Blood Pressure: Normal Pulse: Regular Respiratory Rate: Normal Appearance: Positive for: Well-Appearing, Non-Toxic, Comfortable Mental Status: Positive for: Alert and Oriented X 3 - Systems Exam Head: Present: Atraumatic, Normocephalic Pupils: Present: PERRL Extroacular Muscles: Present: EOMI Conjunctiva: Present: Normal Mouth: Present: Moist Mucous Membranes Neck: Present: Normal Range of Motion Respiratory/Chest: Present: Clear to Auscultation, Good Air Exchange. No: Respiratory Distress Abdomen: Present: Normal Bowel Sounds. No: Tenderness, Distention Neurological: Present: GCS=15, Speech Normal, Other (No nystagmus noted) Skin: Present: Warm, Dry, Normal Color Psychiatric: Present: Alert, Oriented x 3, Normal Insight, Normal Concentration Medical Decision Making ED Course and Treatment: 11/08/18 Impression 23F w/ palpitations, emesis and abdominal pain Differential Diagnoses Include But Are Not Limited To: --Arrhythmia --Gastritis -- Plan --Labs --IVF --Reglan --CXR --Urinalyisis --Urine Culture --Reassessment and disposition Progress Notes 11/08/18 17:53 Patient noted to have significant improvement after medications and desires to go home. Lab results shared with patient advised to continue PO hydration and to monitor symptoms. She will follow up with her PCP. She is stable for discharge. - Lab Interpretations Lab Results: Total Bilirubin 0.4 mg/dL (0.2-1.3) 11/07/18 16:50 AST 34 U/L (14-36) 11/07/18 16:50 ALT 26 U/L (7-56) 11/07/18 16:50 Alkaline Phosphatase 94 U/L (38-126) 11/07/18 16:50 Total Protein 8.9 g/dL (5.8-8.3) H 11/07/18 16:50 Albumin 4.8 g/dL (3.0-4.8) 11/07/18 16:50 Globulin 4.2 gm/dL 11/07/18 16:50 Albumin/Globulin Ratio 1.1 (1.1-1.8) 11/07/18 16:50 Urine Color Yellow (YELLOW) 11/07/18 16:43 Urine Appearance Clear (CLEAR) 11/07/18 16:43 Urine pH 7.5 (4.7-8.0) 11/07/18 16:43 Ur Specific [place] 1.020 (1.005-1.035) 11/07/18 16:43 Urine Protein Negative mg/dL (<30 mg/dL) 11/07/18 16:43 Urine Glucose (UA) Negative mg/dL (NEGATIVE) 11/07/18 16:43 Urine Ketones Negative mg/dL (NEGATIVE) 11/07/18 16:43 Urine Blood Negative (NEGATIVE) 11/07/18 16:43 Urine Nitrate Negative (NEGATIVE) 11/07/18 16:43 Urine Bilirubin Negative (NEGATIVE) 11/07/18 16:43 Urine Urobilinogen 0.2 E.U./dL (<1 E.U./dL) 11/07/18 16:43 Ur Leukocyte Esterase Negative Jcarlos/uL (NEGATIVE) 11/07/18 16:43 11/07/18 16:17 11/07/18 16:50 Lab Results 11/07/18 16:50: Sodium 138, Potassium 3.6, Chloride 103, Carbon Dioxide 26, Anion Gap 13, BUN 11, Creatinine 0.6 L, Est GFR ( Amer) > 60, Est GFR (Non-Af Amer) > 60, Random Glucose 107, Calcium 9.9, Magnesium 2.1, Total Bilirubin 0.4, AST 34, ALT 26, Alkaline Phosphatase 94, Total Protein 8.9 H, Albumin 4.8, Globulin 4.2, Albumin/Globulin Ratio 1.1 11/07/18 16:43: Urine Color Yellow, Urine Appearance Clear, Urine pH 7.5, Ur Sp ecific [place] 1.020, Urine Protein Negative, Urine Glucose (UA) Negative, Urine Ketones Negative, Urine Blood Negative, Urine Nitrate Negative, Urine Bilirubin Negative, Urine Urobilinogen 0.2, Ur Leukocyte Esterase Negative 11/07/18 16:17: WBC 9.3, RBC 4.72, Hgb 13.7, Hct 41.9, MCV 88.8, MCH 29.0, MCHC 32.7, RDW 13.8, Plt Count 370, MPV 11.4 H, Neut % (Auto) 62.5, Lymph % (Auto) 27.4, Coffey % (Auto) 9.5 H, Eos % (Auto) 0.4 L, Baso % (Auto) 0.2, Lymph # (Auto) 2.5, Coffey # (Auto) 0.9 H, Eos # (Auto) 0.0, Baso # (Auto) 0.02, Absolute Neuts (auto) 5.80 I have reviewed the lab results: Yes - RAD Interpretation Radiology Orders: 11/07/18 16:09 CHEST PORTABLE [RAD] Stat - Medication Orders Current Medication Orders: Discontinued Medications Sodium Chloride (Sodium Chloride 0.9%) 1,000 mls @ 999 mls/hr IV .Q1H1M STA Stop: 11/07/18 17:17 Last Admin: 11/07/18 16:28 Dose: 999 mls/hr eMAR Start Stop Document 11/07/18 16:28 LA (Rec: 11/07/18 16:28 LA [facility]) Intravenous Solution Start Date 11/07/18 Start Time 16:28 End Date 11/07/18 End time 17:29 Total Infusion Time 61 Metoclopramide HCl (Reglan) 10 mg IVP STAT STA Stop: 11/07/18 16:18 Last Admin: 11/07/18 16:27 Dose: 10 mg IVP Administration Document 11/07/18 16:27 LA (Rec: 11/07/18 16:28 LA [facility]) Charges for Administration # of IVP Administrations 1 Disposition/Present on Arrival - Present on Arrival Any Indicators Present on Arrival: No History of DVT/PE: No History of Uncontrolled Diabetes: No Urinary Catheter: No History of Decub. Ulcer: No History Surgical Site Infection Following: None - Disposition Have Diagnosis and Disposition been Completed?: Yes Diagnosis: Palpitations Disposition: HOME/ ROUTINE Disposition Time: 17:43 Patient Plan: Discharge Condition: IMPROVED Discharge Instructions (ExitCare): Palpitations (DC) Print Language: MALTESE Additional Instructions: All medical record entries made by the Scribe were at my direction and personally dictated by me. I have reviewed the chart and agree that the record accurately reflects my personal performance of the history, physical exam, medical decision making, and the department course for this patient. I have also personally directed, reviewed, and agree with the discharge instructions and disposition. Referrals: Matthew Bonilla MD [Primary Care Provider] - Follow up with primary Roman,MD Keely [Staff Provider] - Follow up with primary Forms: [facility] (Croatian), WORK NOTE
--- NOTE | 2018-11-08 11:41 | CARD ---
APPROVED REPORT Date of service: 11/07/2018 EKG Measurement Heart [id number] <Conclusion> Normal sinus rhythm.
== END 2018-11-07 18:15 | disposition home or self-care (01) ==
LOC: ED 15:36
DX: R00.2 Palpitations (principal)
CPT/HCPCS: 71045; 80053; 81003; 81025; 83735; 85025; 93005; 96361; 96374; 99284; J2765; J7030